=== PATIENT | female | born 2000 | race Caucasian/White ===

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

== ENCOUNTER 2019-06-08 14:24 | Emergency (ER) | payer OTHER ==
[~2019-06-08] VITALS: Ht 172.7 cm; Wt 74.8 kg
[~2019-06-08 14:24] MED LIST: AMOXICILLI400 MG/5 M PO; CODEINE-GUAIFE120 ML PO
[2019-06-08 15:13] LABS: URINE BILIRUBIN NEGATIVE (Negative); URINE BLOOD NEGATIVE (Negative); URINE CLARITY CLEAR; URINE COLOR YELLOW; URINE GLUCOSE-RANDOM NEGATIVE (Negative); URINE KETONES TRACE (Negative); URINE LEUKOCYTES-REFLEX NEGATIVE (Negative); URINE NITRITE-REFLEX NEGATIVE (Negative); URINE PROTEIN NEGATIVE (Negative); URINE UROBILINOGEN 0.2 E.U./dl (0.2-1.0)
[2019-06-08 15:27] LABS: ABSOLUTE LYMPHOCYTES 2.1 thou/uL (0.8-5.3); ABSOLUTE MONOCYTES 0.6 thou/uL (0.0-1.2); ABSOLUTE NEUTROPHILS 5.6 thou/uL (1.6-8.1); BASOPHILS 0.6 %; EOSINOPHILS 0.4 %; HEMOGLOBIN 14.3 gm/dL (12.0-15.0); LYMPHOCYTES 25.3 %; MCH 30.3 pg (26.0-34.0); MCHC 34.1 g/dL (28.0-37.0); MCV 88.8 fL (80.0-100.0); MONOCYTES 6.9 %; MPV 7.5 fl. (7.2-11.1); NUCLEATED RBCS 0 /100WBC; PLATELET COUNT* 347 thou/uL (150-400); POLYS 66.8 %; RBC 4.73 mil/uL (4.20-5.00); RDW-CV 12.7 % (10.5-14.5); WBC 8.4 thou/uL (4.0-11.0)
[2019-06-08 15:35] LABS: CALCIUM 9.7 mg/dL (8.5-10.1); CREATININE 0.8 mg/dL (0.6-1.3); POTASSIUM 3.5 mmol/L (3.5-5.1)
[2019-06-08 15:49] LABS: ALBUMIN 4.8 g/dL (3.4-5.0); TOTAL BILIRUBIN 0.6 mg/dL (<0.1-1.0); TOTAL PROTEIN 8.6 g/dL (6.4-8.2)
[2019-06-08] MEDS ORDERED: ONDANSETRON HCL4 M2 PO (16:43)
[2019-06-08] MEDS ORDERED: BENTYL 20 MG TA20 M1 PO (16:43)
[2019-06-08 17:00] VITALS: BP 118/78
== END 2019-06-08 17:01 | disposition home or self-care (01) ==
LOC: M.ERS 14:24
PROVIDERS: Nurse Practitioner Family
DX: N20.0 Calculus of kidney (principal)